=== PATIENT | male | born 1940 | race Caucasian/White ===

== ENCOUNTER 2020-07-01 11:48 | Emergency (ER) | payer MEDICARE, MEDICAID ==
[~2020-07-01] VITALS: Ht 172.7 cm; Wt 65.0 kg
[2020-07-01 11:56] VITALS: BP 145/85
--- NOTE | 2020-07-01 12:23 | NUR ---
to ed from home per SW told her SI denies it to this RN no plan for self harm. verbalizes sometimes feeling angry. gf left after a wk and he went back to his home"i have a massive hoarding problem" on seroqiel takes sometimes. undressed, 2 bags in belongings locker. rosalba in room for eval, ok to eat, awaiting psych, aware of poc. jovial affect, cooperative. call jay. sitter requested. as
--- NOTE | 2020-07-01 12:52 | NUR ---
report to sayda matos pt moved to room 3. as
[2020-07-01] MEDS ORDERED: LORazepam 0.5MG TABLET PO ONE (13:00)
--- NOTE | 2020-07-01 13:05 | NUR ---
BREAK RN: PT PROVIDED W/ URINAL AND EDUCATED ON NEED FOR SAMPLE.
[2020-07-01 13:08] LABS: BASOPHILS # (AUTO) 0.03 x10^3/uL (0-0.1); BASOPHILS % (AUTO) 1 % (0-1); EOSINOPHILS # (AUTO) 0.03 x10^3/uL (0-0.4); EOSINOPHILS % (AUTO) 1 % (1-7); LYMPHOCYTES # (AUTO) 0.91 x10^3/uL (1-3.4); LYMPHOCYTES % (AUTO) 23 % (22-44); MD NO; MEAN CORPUSCULAR HEMOGLOBIN 31.6 pg (27.5-34.5); MEAN CORPUSCULAR HGB CONC 32.8 g/dL (33.2-36.2); MEAN CORPUSCULAR VOLUME 96.3 fL (81-97); MEAN PLATELET VOLUME 7.7 fL (7.4-10.4); MONOCYTES # (AUTO) 0.29 x10^3/uL (0.2-0.8); MONOCYTES % (AUTO) 7 % (2-9); NEUTROPHILS # (AUTO) 2.73 x10^3/uL (1.8-6.8); NEUTROPHILS % (AUTO) 68 % (42-75); PLATELET COUNT 219 x10^3/uL (130-400); RED BLOOD COUNT 4.54 x10^6/uL (4.38-5.82); RED CELL DISTRIBUTION WIDTH 13.8 % (9.4-14.8)
[2020-07-01 13:18] LABS: ALBUMIN 3.6 g/dL (3.4-5.0); ANION GAP 5 mmol/L (5-15); CALCIUM 9.1 mg/dL (8.5-10.1); CHLORIDE 110 mmol/L (98-107)
[2020-07-01 13:22] LABS: SALICYLATE LEVEL < 1.7 mg/dL (2.8-20.0)
[2020-07-01 13:29] LABS: ALANINE AMINOTRANSFERASE 19 U/L (12-78); ALKALINE PHOSPHATASE 66 U/L (45-117); BILIRUBIN,TOTAL 1.5 mg/dL (0.2-1.0); CREATININE 1.03 mg/dL (0.7-1.3)
[2020-07-01 13:41] LABS: AMPHETAMINE SCREEN, URINE Negative (Negative); BARBITURATE SCREEN, URINE Negative (Negative); BENZODIAZEPINE SCREEN, URINE Negative (Negative); CANNABINOID SCREEN, URINE Negative (Negative); OPIATE SCREEN, URINE Negative (Negative)
[2020-07-01 13:43] LABS: COCAINE SCREEN, URINE Negative (Negative); METHADONE SCREEN, URINE Negative (Negative)
--- NOTE | 2020-07-01 13:52 | NUR ---
PT GIVEN MEAL TRAY. USED PHONE TO TALK TO FAMILY. PT COMFORTABLE. CALL LIGHT IN REACH
--- NOTE | 2020-07-01 14:30 | NUR ---
NANNY CAREGIVER AT BEDSIDE
--- NOTE | 2020-07-01 15:37 | NUR ---
Patient/Caregiver given discharge instructions and they have confirmed that they understand the instructions. Patient ambulatory with steady gait.
== END 2020-07-01 15:40 | disposition home or self-care (01) ==
LOC: ED 15:13
DX: F42.9 Obsessive-compulsive disorder, unspecified (principal); R45.851 Suicidal ideations
CPT/HCPCS: 36415; 80053; 80307; 85025; 99283